=== PATIENT | female | born 1975 | race Hispanic/Latino ===

== ENCOUNTER → 2017-11-23 | Day surgery (SDC) | payer OTHER ==
[~2017-11-23] VITALS: Ht 152.4 cm; Wt 69.4 kg
--- NOTE | 2017-11-23 11:43 | Operative Report ---
Operative/Inv Procedure Report Surgery Date: 11/23/17 Name of Procedure: Laparoscopy right ovarian cystectomy Pre-Operative Diagnosis: Pelvic pain Post-Operative Diagnosis: Pelvic pain Estimated Blood Loss: less than 50ml Surgeon/Termite Helper: Lisa Lazaro MD Anesthesia: general endotracheal tube Operative/Procedure Note Note: Procedure note patient was taken to the operating room placed supine positionProcedure note patient was taken the operating room placed on position after adequate induction general anesthesia via endotracheal tube on the patient was abdomen was prepped and draped sterile fa bladder was catheterized examination anesthesia performed single-tooth tenaculum was left on the Intralipid cervix gentle downward traction patient tolerated that wellshion abdomen was prepped and draped so fashion bladder was catheterized examination anesthesia performed single-tooth sac was left on the anterior lip of the cervix after down traction patient tolerated that well after adequate induction of general anesthesia via endotracheal tube the patient was Findings: Uterus with adhesions to the old Pfannenstiel skin incisionUterus with adhesions to the old Pfannenstiel skin incision endometriosis implants of the bladder reflection and on the right tube endometriosis implants by the bladder reflection and on the right tube a 10 cm ovarian cyst simple cyst on the right tube otherwise normal anatomy the the the uterus is 10-12 week size fibroid uterus the uterus is at 10-12 weeks size fibroid uterus otherwise normal anatomy a 10 cm ovarian cyst simple cyst on the right tube
--- NOTE | 2017-11-30 13:39 | Operative Report ---
Operative/Inv Procedure Report Surgery Date: 11/23/17 Name of Procedure: Laparoscopy right ovarian cystectomy Pre-Operative Diagnosis: Pelvic pain Post-Operative Diagnosis: Same Estimated Blood Loss: less than 50ml Surgeon/Gate Person: Lisa Lazaro MD Anesthesia: general endotracheal tube, block Operative/Procedure Note Note: PT TAKEN TO OR ABD PREPPED AND DRAPED AFTER ADEQUATE INDUCTION OF GENERAL ANESTHESIA.
--- NOTE | 2017-12-01 15:25 | Operative Report ---
Operative/Inv Procedure Report Surgery Date: 11/23/17 Name of Procedure: Laparoscopy right ovarian cystectomy Pre-Operative Diagnosis: Pelvic pain Post-Operative Diagnosis: Same Estimated Blood Loss: scant Surgeon/Nutritional Yeast Supervisor: Lisa Lazaro MD Anesthesia: general endotracheal tube Operative/Procedure Note Note: Procedure patient was seen the operating room placed supine position after adequate adequate induction general anesthesia via endotracheal tube patient placed in dorsolithotomy position the vagina from dorsal fashion bladder was catheterized examination under anesthesia performed CO2 tenaculum was placed on the Intralipid cervix gentle downward traction Hyman was left in place surgeon regowned and gloved below the umbilicus stab incision made to allow for the intraperitoneal M was insufflated approximately 4 L CO2 to liver edge dullness which point the Veress needle was a 10 mm trocar was inserted atraumatically the umbilicus through that sheath laparoscope placed under direct visualization a 5 mm port was placed in the midline through that a needle was placed the cyst was drained tissue sent to pathology hemostasis was apparent pictures were taken maximal CO2 the abdomen as well as all instruments under direct visualization prior to removal of the instruments so [place] was applied to the surgical field hemostasis patient hard that well incision at the umbilicus was oversewn using 0 for the fascia 3 over the skin on both incisions patient tolerated that well Marcaine was injected underneath skin at the end the case counts correct the urine was clear and patient was transferred recovery room awake and alert after the awakened from anesthesia
== END ==
LOC: STS 03:04
DX: N83.201 Unspecified ovarian cyst, right side (principal); N73.6 Female pelvic peritoneal adhesions (postinfective); R10.2 Pelvic and perineal pain
CPT/HCPCS: 81025; 88305; J0131; J2250